=== PATIENT | male | born 1975 | race Caucasian/White ===

== ENCOUNTER 2017-02-06 10:57 | Emergency (ER) | payer BC ==
[~2017-02-06] VITALS: Ht 182.8 cm; Wt 154.2 kg
[~2017-02-06 10:57] MED LIST: AMOXIL500 MG PO; ANTI-FUNGAL1% TP; BACTRIM DS 8001 TA1 PO; CIALIS20 MG PO; COLCHICINE0.6 MG PO; COLSALIDE IMPR0.6 MG PO; INDOCIN50 MG PO; INVOKANA100 M1 PO; LISINOPRIL5 MG PO; MEDROL DOSEPAK4 MG PO; METFORMIN HCL1000 MG PO; METFORMIN HCL500 MG PO; METFORMIN500 MG PO; MOTRIN800 MG PO; PENICILLIN VK500 MG PO; PRAVASTATIN SOD20 MG PO; TAMIFLU 75MG CA75 MG PO; TRAMADOL HCL50 MG PO; VICODIN 5/500 505 MG PO; ZANTAC150 MG PO; ZYLOPRIM100 MG PO
[2017-02-06] MEDS ORDERED: NAPROSYN500 MG PO (12:10)
== END 2017-02-06 12:04 | disposition home or self-care (01) ==
LOC: ED 10:57
DX: M70.21 Olecranon bursitis, right elbow (principal); G56.21 Lesion of ulnar nerve, right upper limb; Y93.89 Activity, other specified

== ENCOUNTER 2017-09-18 16:18 | Emergency (ER) | payer BC ==
[~2017-09-18] VITALS: Wt 154.2 kg
[~2017-09-18 16:18] MED LIST changes: +NAPROSYN500 MG PO
[2017-09-18] MEDS ORDERED: PIOGLITAZONE HC30 MG PO (16:29)
[2017-09-18] MEDS ORDERED: SILDENAFIL20 M1 PO (16:29)
[2017-09-18] MEDS ORDERED: LISINOPRIL10 M1 PO (16:29)
[2017-09-18] MEDS ORDERED: BUPROPION HCL150 M1 PO (16:29)
[2017-09-18] MEDS ORDERED: SERTRALINE HYD100 MG PO (16:29)
[2017-09-18] MEDS ORDERED: NAPROSYN500 MG PO (16:42)
[2017-09-18] MEDS ORDERED: 'PARAFON FORTE500 M1 PO (16:42)
== END 2017-09-18 17:37 | disposition home or self-care (01) ==
LOC: ED 16:18
DX: S39.012A Strain of muscle, fascia and tendon of lower back, initial encounter (principal); R03.0 Elevated blood-pressure reading, without diagnosis of hypertension; Z79.899 Other long term (current) drug therapy; V89.2XXA Person injured in unspecified motor-vehicle accident, traffic, initial encounter; Y93.89 Activity, other specified; Y92.413 State road as the place of occurrence of the external cause; Y99.8 Other external cause status

== ENCOUNTER → 2018-02-24 | Outpatient (CLI) | payer BC ==
[~2018-02-24] MED LIST changes: +'PARAFON FORTE500 M1 PO; +BUPROPION HCL150 M1 PO; +LISINOPRIL10 M1 PO; +PIOGLITAZONE HC30 MG PO; +SERTRALINE HYD100 MG PO; +SILDENAFIL20 M1 PO
== END | disposition home or self-care (01) ==
LOC: RAD 09:14
DX: M47.896 Other spondylosis, lumbar region (principal); M99.03 Segmental and somatic dysfunction of lumbar region

== ENCOUNTER → 2019-05-29 | Outpatient (CLI) | payer BC ==
[~2019-05-29] MED LIST changes: +ELIMITE 5%60 GM T; +PREDNISONE20 M1 PO; +VISTARIL50 MG PO
== END | disposition home or self-care (01) ==
LOC: ORTHO 05-27 15:19
DX: M70.21 Olecranon bursitis, right elbow (principal); M25.521 Pain in right elbow

== ENCOUNTER 2019-07-30 21:42 | Emergency (ER) | payer SELFPAY ==
[~2019-07-30] VITALS: Ht 182.8 cm; Wt 154.2 kg
[~2019-07-30 21:42] MED LIST changes: -ELIMITE 5%60 GM T; -PREDNISONE20 M1 PO; -VISTARIL50 MG PO
[2019-07-30] MEDS ORDERED: VISTARIL50 MG PO (21:55)
[2019-07-30] MEDS ORDERED: PREDNISONE20 M1 PO (21:55)
[2019-07-30] MEDS ORDERED: ELIMITE 5%60 GM T (21:55)
== END 2019-07-30 22:18 | disposition home or self-care (01) ==
LOC: ED 21:42
DX: B86 Scabies (principal)

== ENCOUNTER → 2019-11-13 | Outpatient (CLI) | payer SELFPAY ==
[~2019-11-13] MED LIST changes: +ELIMITE 5%60 GM T; +PREDNISONE20 M1 PO; +VISTARIL50 MG PO
== END | disposition home or self-care (01) ==
LOC: LAB 11:45
DX: R79.89 Other specified abnormal findings of blood chemistry (principal)

== ENCOUNTER → 2020-08-02 | Outpatient (CLI) | payer SELFPAY | END | disposition home or self-care (01) | LOC: RESCLI 02:13 | PROVIDERS: ATTEND Family Medicine | DX: I10 Essential (primary) hypertension (principal); E11.9 Type 2 diabetes mellitus without complications; E78.5 Hyperlipidemia, unspecified; N52.9 Male erectile dysfunction, unspecified; E66.01 Morbid (severe) obesity due to excess calories; Z68.42 Body mass index [BMI] 45.0-49.9, adult; Z76.89 Persons encountering health services in other specified circumstances; Z79.899 Other long term (current) drug therapy; Z88.8 Allergy status to other drugs, medicaments and biological substances ==

== ENCOUNTER → 2020-10-15 | Outpatient (CLI) | payer SELFPAY ==
[2020-10-15 08:12] LABS: BASO % 0.3 % (0.0-1.0); EOS # 0.3 10*3/uL (0.0-0.4); EOS % 2.9 % (1.0-4.0); HEMATOCRIT 40.9 % (42.0-52.0); LYMPH # 2.9 10*3/uL (1.3-4.4); LYMPH % 30.6 % (27.0-41.0); MEAN CELL VOLUME 84.7 fl (80.0-94.0); MEAN CORPUSCULAR HGB 28.6 pg (27.0-31.0); MEAN CORPUSCULAR HGB CONC 33.7 g/dl (33.0-37.0); MEAN PLATELET VOLUME 9.5 fl (9.6-12.3); MONO # 0.8 10*3/uL (0.1-1.0); MONO % 8.5 % (3.0-9.0); NEUT # 5.5 10*3/uL (2.3-7.9); NEUT % 57.4 % (47.0-73.0); PLATELET COUNT AUTOMATED 215 10*3/uL (130-400); RED BLOOD COUNT 4.83 10*6/uL (4.50-5.90); RED CELL DISTRI WIDTH 12.4 % (0-14.5); WHITE BLOOD COUNT 9.6 10*3/uL (4.8-10.8)
[2020-10-15 08:45] LABS: BUN 16 mg/dl (7-24); SODIUM 139 mmol/L (136-145)
[2020-10-15 08:46] LABS: ALBUMIN 3.6 gm/dl (3.1-4.5); ALKALINE PHOSPHATASE 85 U/L (45-117); CHLORIDE 108 mmol/L (98-107); CHOLESTEROL 157 mg/dL (<200); HDL CHOLESTEROL 31 mg/dl (40-60); LDL CHOLESTEROL 77 mg/dL (9-159); POTASSIUM 4.2 mmol/L (3.5-5.1); SGOT/AST 10 IU/L (3-35); SGPT/ALT 25 U/L (12-78); TOTAL PROTEIN 7.9 gm/dL (6.4-8.2); TRIGLYCERIDES 243 mg/dl (<150); VLDL CHOLESTEROL 49 mg/dL (6-40)
== END | disposition home or self-care (01) ==
LOC: LAB 07:48
PROVIDERS: Hospitalist; ATTEND Internal Medicine
DX: I10 Essential (primary) hypertension (principal); E11.9 Type 2 diabetes mellitus without complications

== ENCOUNTER → 2020-10-24 | Outpatient (CLI) | payer SELFPAY | END | disposition home or self-care (01) | LOC: LAB 08:00 | PROVIDERS: ATTEND Internal Medicine | DX: E11.9 Type 2 diabetes mellitus without complications (principal); I10 Essential (primary) hypertension; E78.5 Hyperlipidemia, unspecified; N52.9 Male erectile dysfunction, unspecified; Z68.42 Body mass index [BMI] 45.0-49.9, adult; Z79.82 Long term (current) use of aspirin; Z79.84 Long term (current) use of oral hypoglycemic drugs; Z88.8 Allergy status to other drugs, medicaments and biological substances ==

== ENCOUNTER → 2021-06-03 | Outpatient (CLI) | payer OTHER | END | disposition home or self-care (01) | LOC: COVID19 15:05 | PROVIDERS: ATTEND Hospitalist | DX: Z11.52 Encounter for screening for COVID-19 (principal) ==

== ENCOUNTER → 2025-01-04 | Outpatient (CLI) | payer OTHER ==
[2025-01-04 09:37] LABS: BASO % 0.4 % (0.0-1.0); EOS # 0.3 10*3/uL (0.0-0.4); EOS % 3.5 % (1.0-4.0); HEMATOCRIT 37.7 % (42.0-52.0); MEAN CELL VOLUME 85.9 fl (80.0-94.0); MEAN CORPUSCULAR HGB 29.6 pg (27.0-31.0); MEAN CORPUSCULAR HGB CONC 34.5 g/dl (33.0-37.0); MEAN PLATELET VOLUME 9.9 fl (9.6-12.3); MONO # 0.8 10*3/uL (0.1-1.0); MONO % 9.6 % (3.0-9.0); NEUT # 4.5 10*3/uL (2.3-7.9); NEUT % 54.5 % (47.0-73.0); PLATELET COUNT AUTOMATED 234 10*3/uL (130-400); RED BLOOD COUNT 4.39 10*6/uL (4.50-5.90); RED CELL DISTRI WIDTH 13.1 % (0-14.5); WHITE BLOOD COUNT 8.3 10*3/uL (4.8-10.8)
[2025-01-04 10:08] LABS: VITAMIN D, 25-HYDROXY 20.6 ng/mL (30-100)
[2025-01-04 10:26] LABS: ALKALINE PHOSPHATASE 92 U/L (46-116); BUN 27 mg/dl (9-23); CHLORIDE 104 mmol/L (98-107); CHOLESTEROL 167 mg/dL (<200); FREE T4 0.88 ng/dl (0.89-1.76); LDL CHOLESTEROL 92 mg/dL (9-159); POTASSIUM 4.3 mmol/L (3.4-5.1); SGPT/ALT 15 U/L (5-49); TOTAL PROTEIN 6.9 gm/dL (6.0-8.0); TRIGLYCERIDES 191 mg/dl (<150)
== END | disposition home or self-care (01) ==
LOC: LAB 09:06
PROVIDERS: ATTEND Internal Medicine
DX: I10 Essential (primary) hypertension (principal); E11.9 Type 2 diabetes mellitus without complications; E78.5 Hyperlipidemia, unspecified; R53.83 Other fatigue; E29.9 Testicular dysfunction, unspecified; E53.9 Vitamin B deficiency, unspecified; E55.9 Vitamin D deficiency, unspecified